=== PATIENT | female | born 1950 | race Caucasian/White ===

== ENCOUNTER → 2017-06-23 | Outpatient (CLI) | payer MEDICARE, BC ==
--- NOTE | 2017-06-26 07:10 | BD ---
EXAMINATION TYPE: MG DEXA axial skeleton. DATE OF EXAM: 06/23/2017 COMPARISON: NONE CLINICAL HISTORY: 67-year-old female screening for osteoporosis Height: 63.5 Weight: 173.7 FRAX RISK QUESTIONS: Alcohol (3 or more units per day): no Family History (Parent hip fracture): no Glucocorticoids (More than 3mos): no (Ex: prednisone, prednisolone, methylprednisolone, dexamethasone, and hydrocortisone). History of Fracture in Adulthood: no Secondary Osteoporosis: 1. Type 1 Diabetes: no 2. Hyperthyroidism: no 3. Menopause before 45: yes 4. Malnutrition: no 5. Chronic liver disease: no Rheumatoid Arthritis: no Current Tobacco Use: no RISK FACTORS HISTORY OF: Hip Fracture (Right/Left): no Spine Fracture: no History of Wrist Fracture: no Surgery to Spine/Hip(right/left)/Wrist (right/left): fusion of L-3,4,5 Family History of Osteoporosis: no Active: yes Diet low in dairy products/other sources of calcium: yes Postmenopausal woman: age 39 If Premenopausal, do you have irregular periods: Take estrogen and/or progesterone medications: yes How long: since age 39 Lost more than 2 inches in height since high school: no Frequent falls: no Poor Health: no Hyperparathyroidism: no Adrenal Insufficiency: no MEDICATIONS: Crohn's disease meds, blood pressure meds, prevacid Additional History: EXAM MEASUREMENTS: Bone mineral densitometry was performed using the [employer] System. Bone mineral density about the R hip (g/cm2): 0.958 Bone mineral density about the L hip (g/cm2): 0.872 T Score values are as follows: -----R Neck: -0.6 -----L Neck: -1.2 -----R Total: -1.0 -----L Total: -1.0 Bone mineral density has: decreased -0.9 % since study of: 01.16.2015 IMPRESSION: Osteopenia (T Score between -2.5 and -1 as noted by T score values in the left hip). There is slightly increased risk of fracture and the patient may be considered for treatment. Re-Scre en 2-5 years. NOTE: T-SCORE=SD OF THE YOUNG ADULT MEAN.
--- NOTE | 2017-06-27 07:48 | MM ---
Reason for exam: screening (asymptomatic). Last mammogram was performed 1 year and 6 months ago. History: Patient is postmenopausal. Taking estrogen for 21 years 6 months beginning at age 39. Physical Findings: A clinical breast exam by your physician is recommended on an annual basis and results should be correlated with mammographic findings. MG 3D Screening Mammo W/Cad Bilateral CC and MLO view(s) were taken. Prior study comparison: December 18, 2015, bilateral MG 3d diag mammo w/cad [facility]. June 16, 2014, bilateral MG screening mammo w CAD. There are scattered fibroglandular densities. There is chronic nodularity in the left breast. No significant changes when compared with prior studies. ASSESSMENT: Negative, BI-RAD 1 RECOMMENDATION: Routine screening mammogram of both breasts in 1 year. Manage on a clinical basis with regard to lateral right breast pain.
== END | disposition home or self-care (01) ==
LOC: RADMAMWWP 15:40
PROVIDERS: ATTEND Family Medicine
DX: Z12.31 Encounter for screening mammogram for malignant neoplasm of breast (principal); M85.88 Other specified disorders of bone density and structure, other site
CPT/HCPCS: 77080; 77063; G0202

== ENCOUNTER → 2018-02-19 | Outpatient (CLI) | payer MEDICARE, BC | END | disposition home or self-care (01) | LOC: RADMRIMAIN 13:12 | PROVIDERS: ATTEND Family Medicine | DX: Z01.812 Encounter for preprocedural laboratory examination (principal); M54.12 Radiculopathy, cervical region; M54.5 Low back pain | CPT/HCPCS: 82565; 84520 ==

== ENCOUNTER → 2024-01-18 | Outpatient (CLI) | payer MEDICARE, BC ==
--- NOTE | 2024-01-22 23:11 | MM ---
Reason for Exam: Screening (asymptomatic). Last mammogram was performed 6 year(s) and 7 month(s) ago. Patient History: Menarche at age 11. First Full-Term at age 19. Left ovary removed at age 39. Right ovary removed at age 39. Hysterectomy at age 39. Postmenopausal. Currently using Estrogen, beginning at age 39 for 21 years, 6 months. Risk Values: Caro 5 year model risk: 1.6%. NCI Lifetime model risk: 3.7%. Prior Study Comparison: 06/16/2014 Bilateral Screening Mammogram, [facility]. 12/18/2015 Bilateral Diagnostic Mammogram, [facility]. 06/23/2017 Bilateral Screening Mammogram, [facility]. Tissue Density: There are scattered areas of fibroglandular density. Findings: Analyzed By CAD. The pattern is stable. Focal asymmetries are present bilaterally, unchanged. Chronic nodularity is present bilaterally. No suspicious groups of microcalcifications, spiculated or lobular masses, architectural distortion or other secondary signs of malignancy are mammographically apparent. Overall Assessment: Benign, BI-RAD 2 Management: Screening Mammogram of both breasts in 1 year. A negative mammogram report should not preclude additional follow up of suspicious palpable abnormalities. Patient should continue monthly self breast exam. A clinical breast exam by your physician is recommended on an annual basis and results should be correlated with mammographic findings. Note on Caro scores and lifetime risk: 1. A Caro score greater than 3% is considered moderate risk. If this is the case, consider specialist referral to assess eligibility for a risk reducing agent. 2. If overall lifetime risk for the development of breast cancer is 20% or higher, the patient may qualify for future screening with alternating mammogram and breast MRI. Electronically signed and approved by: Rocco Rosario D.O. Radiologis
--- NOTE | 2024-01-24 09:03 | BD ---
EXAMINATION TYPE: Axial Bone Density DATE OF EXAM: 01/18/2024 CLINICAL HISTORY: 73 years old Female. ICD-10 CODE: Z78.0 MENOPAUSAL Height: 62.5 Weight: 175 FRAX RISK QUESTIONS: Family History (Parent hip fracture): no History of Fracture in Adulthood: no Secondary Osteoporosis: yes 3. Menopause before 45:yes RISK FACTORS HISTORY OF: Surgery to Spine: yes When: 2009 MEDICATIONS: Thyroid Medications: no Osteoporosis Medications: no EXAM MEASUREMENTS: Bone mineral densitometry was performed using the [employer] System. Bone mineral density about the R hip (g/cm2): 0.887 Bone mineral density about the L hip (g/cm2): 0.855 T Score values are as follows: -----R Neck: 0.7 -----L Neck: -1.3 -----R Total: -1.0 -----L Total: -1.2 Z Score values are as follows: -----R Neck: 2.3 -----L Neck: 0.3 -----R Total: 0.4 -----L Total: 0.2 Bone mineral density has: Decreased -1.4% since study of: 06/23/2017 Bone mineral density about the L Wrist (g/cm2): 0.633 T Score values are as follows: -----Dist. R+U: -1.4 -----Prox. R+U: 0.0 -----Radius total: -0.7 Z Score values are as follows: -----Dist. R+U: 0.9 -----Prox. R+U: 2.2 -----Radius total: 1.6 Bone mineral density baseline FRAX%s: The graph provided illustrates a 10.0% chance for a major osteoporotic fx and a 1.7% chance f or the hips probability for fx in 10 years time. IMPRESSION: Normal (Values between +1 and -1 indicate normal bone mass). Consider repeating this study in 5 year s or sooner if there is some new clinical indication. NOTE: T-SCORE=SD OF THE YOUNG ADULT MEAN.
== END | disposition home or self-care (01) ==
LOC: RADBDWWP 14:31
PROVIDERS: ATTEND Family Medicine
DX: Z12.31 Encounter for screening mammogram for malignant neoplasm of breast (principal); M85.89 Other specified disorders of bone density and structure, multiple sites; Z78.0 Asymptomatic menopausal state
CPT/HCPCS: 77063; 77067; 77080

== ENCOUNTER → 2024-07-19 | Outpatient (CLI) | payer MEDICARE, BC ==
[2024-07-19 15:25] LABS: African American GFR (CKD) 69 (>60 ml/min/1.73 sqM); Blood Urea Nitrogen 16 mg/dL (7-17); Non-African American GFR(CKD) 60 (>60 ml/min/1.73 sqM)
--- NOTE | 2024-07-19 17:08 | CT ---
EXAMINATION TYPE: CT abdomen pelvis w con DATE OF EXAM: 07/19/2024 4:25 PM COMPARISON: None CLINICAL INDICATION: Female, 74 years old with history of R10.31 RLQ PAIN; TECHNIQUE: Axial CT abdomen pelvis w con;Sagittal and coronal reformats were created on a separate w orkstation. Contrast used: mL of , (none if empty) Oral contrast used: (none if empty) CT DLP: mGycm, Automated exposure control for dose reduction was used. FINDINGS: LOWER CHEST: Airspace opacities in the right middle and right lower lung partially visualized. ABDOMEN LIVER: Unremarkable GALLBLADDER AND BILE DUCTS: The gallbladder is surgically absent. PANCREAS: Unremarkable. SPLEEN: Unremarkable. ADRENAL GLANDS: Unremarkable. KIDNEYS AND URETERS: No evidence of hydronephrosis or renal calculus. The ureters are unremarkable. PELVIS BLADDER: No evidence for wall thickening or mass given limitations of exam. REPRODUCTIVE: The uterus is surgically absent. ABDOMEN & PELVIS STOMACH AND BOWEL: No evidence of bowel obstruction. Scattered colonic diverticula. The appendix is n ormal. Moderate amount of stool throughout the colon. PERITONEUM/RETROPERITONEUM: No evidence of pneumoperitoneum or free fluid. VASCULATURE: No evidence of aortic aneurysm. MUSCULOSKELETAL: Multilevel degeneration changes spine with fixation rods L3-L4 and L5. Hardware appe ars intact. LYMPH NODES: Enlarged presacral lymph node measuring up to 13 mm. SOFT TISSUE/ABDOMINAL WALL: Unremarkable IMPRESSION: 1. Right middle and right lower lung airspace opacities correlate for pneumonia. 2. Single enlarged presacral lymph node on the right, no obvious mass in the abdomen and pelvis or o ther lymphadenopathy is identified. Correlate with history of malignancy. 3. Colonic diverticulosis. 4. No evidence for obstructive uropathy or renal calculus. The appendix is normal. The gallbladder s urgically absent. [facility], , 07/19/2024 4:33 PM
== END | disposition home or self-care (01) ==
LOC: RADCTMAIN 14:28
PROVIDERS: ATTEND Family Medicine
DX: K57.30 Diverticulosis of large intestine without perforation or abscess without bleeding (principal); R59.9 Enlarged lymph nodes, unspecified; Z90.49 Acquired absence of other specified parts of digestive tract
CPT/HCPCS: 82565; 84520; 74177; 36415; Q9967